=== PATIENT | male | born 1965 | race American Indian/Alaskan Native ===

== ENCOUNTER 2018-04-26 14:47 | Outpatient (CLI) | payer OTHER ==
--- NOTE | 2018-04-27 00:59 | XRay Report ---
PROCEDURE: XR KNEE 3V LT TECHNIQUE: 3 views of the left knee: AP, oblique and lateral projections. HISTORY: Left knee pain, gout. COMPARISONS: None available. FINDINGS: Normal osseous mineralization. No acute fracture. Patellofemoral compartment degenerative changes. Sm all joint effusion. Bulky, extensor mechanism enthesophytes most prominent at the superior patella, quadriceps mechanism insertion. There is additional mild prepatellar soft tissue suggested. IMPRESSION: 1. No acute fracture. 2. Mild patellofemoral degenerative changes. 3. Prominent extensor mechanism enthesophytes and prepatellar soft tissue swelling. No definite erosi ons. This document is electronically signed by Ra Atkinson DO., April 27 2018 12:57:40 AM ET
== END 2018-04-26 14:48 | disposition home or self-care (01) ==
LOC: XRAY 14:47
PROVIDERS: ATTEND Internal Medicine Infectious Disease
DX: M17.12 Unilateral primary osteoarthritis, left knee (principal); J45.909 Unspecified asthma, uncomplicated; M10.9 Gout, unspecified

== ENCOUNTER 2018-07-11 08:51 | Emergency (ER) | payer OTHER ==
[2018-07-11 09:15] VITALS: BP 126/76
[2018-07-11] MEDS ORDERED: IBUPROFEN PO ONE (10:10)
[2018-07-11] MEDS ORDERED: COLCHICINE PO ONE (10:10)
[2018-07-11] MEDS ORDERED: DELTASONE PO ONE (10:10)
--- NOTE | 2018-07-11 10:14 | Emergency Department Report ---
ED Extremity Problem HPI - General Chief complaint: Extremity Injury, Lower Stated complaint: (L) FOOT GOUT/PAIN Time Seen by Provider: 07/11/18 09:47 Source: patient Mode of arrival: Ambulatory Limitations: No Limitations - History of Present Illness Initial comments: 53-year-old -[place]ian male who presents to the emergency room for left foot pain. Patient states that it started 1 week ago. Patient reports that he feels as if this is gout flare or not. Patient does admit eating seafood and alcohol door and the week. Patient reports he has taken ibuprofen which helps some. Patient reports that the pain is in his left great toe. Patient has no known drug allergies. MD Complaint: extremity pain, joint swelling Onset/Timin -: week(s) Location: left, toe History of Same: Yes -: Yes arthralgia Radiation: proximal Severity scale (0 -10): 8 Quality: stabbing, aching, sharp Consistency: constant Improves with: medication Worsens with: weight bearing, walking, palpation - Related Data Previous Rx's Medication Instructions Recorded Last Taken Type Acyclovir [Zovirax Tab] 800 mg PO Q12H #50 tab 04/29/15 Unknown Rx Azithromycin 1,200 mg PO 1XW #52 tablet 05/11/17 Unknown Rx Fluconazole [Diflucan TAB] 200 mg PO QDAY #7 tablet 05/11/17 Unknown Rx Pantoprazole [Protonix TAB] 40 mg PO QDAY #30 tablet 05/11/17 Unknown Rx Sulfamethoxazole/Trimethoprim 2 each PO Q8HR #63 tablet 05/11/17 Unknown Rx [Bactrim DS TAB] predniSONE [Deltasone] 20 mg PO QDAY #21 tablet 05/11/17 Unknown Rx Indomethacin 50 mg PO Q8H #15 capsule 07/11/18 Unknown Rx predniSONE [Deltasone] 50 mg PO QDAY 4 Days #4 tab 07/11/18 Unknown Rx Allergies Allergy/AdvReac Type Severity Reaction Status Date / Time No Known Allergies Allergy Verified 07/11/18 08:52 ED Review of Systems ROS: Stated complaint: (L) FOOT GOUT/PAIN Other details as noted in HPI Comment: All other systems reviewed and negative ED Past Medical Hx - Past Medical History Hx Congestive Heart Failure: No Hx Diabetes: No Hx Sickle Cell Disease: No Hx Asthma: Yes (new dx) Hx COPD: No Hx HIV: Yes Additional medical history: GOUT - Social History Smoking Status: Never Smoker Substance Use Type: Alcohol - Medications Home Medications: Home Medications Medication Instructions Recorded Confirmed Last Taken Type Acyclovir [Zovirax Tab] 800 mg PO Q12H #50 tab 04/29/15 Unknown Rx Azithromycin 1,200 mg PO 1XW #52 tablet 05/11/17 Unknown Rx Fluconazole [Diflucan TAB] 200 mg PO QDAY #7 tablet 05/11/17 Unknown Rx Pantoprazole [Protonix TAB] 40 mg PO QDAY #30 tablet 05/11/17 Unknown Rx Sulfamethoxazole/Trimethoprim 2 each PO Q8HR #63 tablet 05/11/17 Unknown Rx [Bactrim DS TAB] predniSONE [Deltasone] 20 mg PO QDAY #21 tablet 05/11/17 Unknown Rx Indomethacin 50 mg PO Q8H #15 capsule 07/11/18 Unknown Rx predniSONE [Deltasone] 50 mg PO QDAY 4 Days #4 tab 07/11/18 Unknown Rx ED Physical Exam - General Limitations: No Limitations General appearance: alert, in no apparent distress - Head Head exam: Present: atraumatic, normocephalic - Eye Eye exam: Present: normal appearance - ENT ENT exam: Present: mucous membranes moist - Neck Neck exam: Present: normal inspection - Expanded Lower Extremity Exam Left Hip exam: Present: normal inspection Upper Leg exam: Present: normal inspection Knee exam: Present: normal inspection Lower Leg exam: Present: normal inspection Ankle exam: Present: normal inspection Foot/Toe exam: Present: tenderness (great toe), swelling (great toe), erythema (great toe) Neuro vascular tendon exam: Present: no vascular compromise - Back Exam Back exam: Present: normal inspection - Neurological Exam Neurological exam: Present: alert, oriented X3 - Psychiatric Psychiatric exam: Present: normal affect, normal mood - Skin Skin exam: Present: warm, dry, intact, normal color. Absent: rash ED Course Vital Signs 07/11/18 07/11/18 09:13 10:18 Temperature 97.5 F L Pulse Rate 56 L Respiratory 18 16 Rate Blood Pressure 126/76 O2 Sat by Pulse 100 Oximetry ED Medical Decision Making - Medical Decision Making 53-year-old -Romanian male with a past medical history of gout comes in for a gout flare up to his left great toe. Patient will be given 60 mg of prednisone and colchicine 1.2 mg and ibuprofen 800 mg. Patient be discharged home on a prednisone pack and indomethacin 50 mg 3 times a day when necessary. - Differential Diagnosis gout, cellulitis, fracture Critical care attestation.: If time is entered above; I have spent that time in minutes in the direct care of this critically ill patient, excluding procedure time. ED Disposition Clinical Impression: Gout attack Disposition: DC-01 TO HOME OR SELFCARE Is pt being admited?: No Does the pt Need Aspirin: No Condition: Stable Instructions: Acute Gouty Arthritis (ED) Additional Instructions: Please take medications as prescribed. Increase her water intake while taking medications. Please follow-up with Dr. Kristina Vogt in the next 48-72 hours. Prescriptions: predniSONE [Deltasone] 50 mg PO QDAY 4 Days #4 tab Indomethacin 50 mg PO Q8H #15 capsule Referrals: JOSE RODRÍGUEZ MD [Staff Physician] - 3-5 Days
== END 2018-07-11 11:11 | disposition home or self-care (01) ==
LOC: ED 08:51
DX: M10.072 Idiopathic gout, left ankle and foot (principal); J45.909 Unspecified asthma, uncomplicated; Z21 Asymptomatic human immunodeficiency virus [HIV] infection status
CPT/HCPCS: 99282; J7512